=== PATIENT | female | born 2000 | race Caucasian/White ===

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

== ENCOUNTER → 2020-09-26 | Outpatient (CLI) | payer BC ==
[2020-09-26 23:14] LABS: HCT 44.7 % (37.2-46.3); HGB 14.4 g/dL (12.0-15.0); MCH 28.4 pg (27.0-32.0); MCHC 32.2 g/dL (32.0-37.0); MCV 88.2 fL (80.0-97.0); Mean Platelet Volume 10.2 fL (9.5-12.2); Platelet Count 320 X 10*3/uL (140-440); RBC 5.07 X 10*6/uL (4.10-5.20); RDW 12.7 % (11.5-14.5); WBC 8.73 X 10*3/uL (4.50-10.00)
[2020-09-27 00:44] LABS: Estradiol 27.9 pg/mL; Luteinizing Hormone 6.7 mIU/mL
[2020-09-27 00:46] LABS: Follicle Stimulating Hormone 6.1 mIU/mL
[2020-09-27 01:19] LABS: C Reactive Protein, High Sens 0.41 mg/L (0.000-3.000)
[2020-09-27 01:58] LABS: Thyroid Peroxidase Antibodies 34.8 U/mL (0.0-60.0)
[2020-09-27 02:03] LABS: Insulin Level 15.8 mIU/mL (3.0-25.0)
[2020-09-27 02:14] LABS: Progesterone 0.7 ng/mL
[2020-09-27 13:44] LABS: African American GFR (CKD) 123.9 (60.0-200.0); Albumin 5.4 g/dL (3.80-4.90); Albumin/Globulin Ratio 2.7 (1.60-3.17); Anion Gap 21.3 mmol/L (4.00-12.00); BUN/Creat Ratio 21.25 Ratio (12.00-20.00); Calcium 10.5 mg/dL (8.7-10.3); Carbon Dioxide 15.7 mmol/L (21.6-31.8); Non-African American GFR(CKD) 106.9 (60.0-200.0); Potassium 4.5 mmol/L (3.5-5.5); Total Bilirubin 0.5 mg/dL (0.2-1.2); Total Protein 7.4 g/dL (6.2-8.2)
[2020-09-27 13:45] LABS: % Iron Saturation 37.27 (12.00-45.00); Magnesium 2.1 mg/dL (1.5-2.4)
[2020-09-27 13:51] LABS: T4, Free (Free Thyroxine) 1.3 ng/dL (0.83-1.43)
[2020-09-27 13:54] LABS: Folate, Serum 4.9 ng/mL
[2020-09-28 18:34] LABS: Insulin-like GF3 Bind Prot 7.5 mg/L (2.9-7.3)
== END | disposition home or self-care (01) ==
LOC: LABWHC1 13:20
PROVIDERS: ATTEND Legal Medicine
DX: E06.3 Autoimmune thyroiditis (principal); E11.69 Type 2 diabetes mellitus with other specified complication; E23.7 Disorder of pituitary gland, unspecified; E27.8 Other specified disorders of adrenal gland; E28.39 Other primary ovarian failure; E64.9 Sequelae of unspecified nutritional deficiency
CPT/HCPCS: 36415; 80053; 82306; 82397; 82525; 82533; 82607; 82626; 82652; 82670; 82672; 82728; 82746; 82977; 83001; 83002; 83036; 83090; 83525; 83540; 83550; 83735; 84140; 84144; 84305; 84403; 84439; 84443; 84481; 84482; 84630; 85027; 86141; 86376; 86800

== ENCOUNTER 2020-11-12 03:42 | Emergency (ER) | payer BC ==
[2020-11-12 03:48] VITALS: BP 142/85; PULSE 122; RESP 22; TEMP 99
--- NOTE | 2020-11-12 03:49 | ED ---
SOB HPI - General Chief Complaint: Shortness of Breath Stated Complaint: SOB Time Seen by Provider: 11/12/20 03:44 Source: patient, RN notes reviewed, old records reviewed Mode of arrival: ambulatory Limitations: no limitations - History of Present Illness Initial Comments: This is a 20-year-old female DF for evaluation patient Dese for evaluation regar ds to sore throat cough congestion, pain chest pain fevers dizziness and also other complaints. Denies chance of . No recent travel history no sick contacts. Patient has to further elaborate on symptoms and states she just is here for coronavirus test MD Complaint: shortness of breath, cough -: hour(s), days(s) Severity: moderate Severity scale (1-10): 2 Quality: aching Consistency: constant Improves With: nothing Worsens With: nothing Known History Of: asthma Context: recent illness Associated Symptoms: chest pain, cough, sputum production, nausea/vomiting Treatments Prior to Arrival: none - Related Data Home Medications Medication Instructions Recorded Confirmed Levonorgestrel-Ethin Estradiol 1 tab PO HS 06/18/16 06/18/16 [Setlakin 0.15 mg-0.03 mg Tab] Previous Rx's Medication Instructions Recorded Naproxen 500 mg PO Q12H PRN #20 tab 07/04/15 Allergies Allergy/AdvReac Type Severity Reaction Status Date / Time No Known Allergies Allergy Verified 11/12/20 03:47 Review of Systems ROS Statement: Those systems with pertinent positive or pertinent negative responses have been documented in the HPI. ROS Other: All systems not noted in ROS Statement are negative. Past Medical History Past Medical History: No Reported History Additional Past Medical History / Comment(s): hemorrhagic ovarian cysts History of Any Multi-Drug Resistant Organisms: None Reported Past Surgical History: Adenoidectomy, Tonsillectomy Past Psychological History: Anxiety, Depression, Panic Disorder Smoking Status: Vaper Past Alcohol Use History: None Reported Past Drug Use History: None Reported General Exam Limitations: no limitations General appearance: alert, in no apparent distress, anxious Head exam: Present: atraumatic, normocephalic, normal inspection Eye exam: Present: normal appearance, PERRL, EOMI. Absent: scleral icterus, conjunctival injection, periorbital swelling ENT exam: Present: normal exam, mucous membranes moist Neck exam: Present: normal inspection. Absent: tenderness, meningismus, lymphadenopathy Respiratory exam: Present: normal lung sounds bilaterally. Absent: respiratory distress, wheezes, rales, rhonchi, stridor Cardiovascular Exam: Present: normal rhythm, tachycardia, normal heart sounds. Absent: systolic murmur, diastolic murmur, rubs, gallop, clicks GI/Abdominal exam: Present: soft, normal bowel sounds. Absent: distended, tenderness, guarding, rebound, rigid Extremities exam: Present: normal inspection, full ROM, normal capillary refill. Absent: tenderness, pedal edema, joint swelling, calf tenderness Back exam: Present: normal inspection Neurological exam: Present: alert, oriented X3, CN II-XII intact Psychiatric exam: Present: normal affect, normal mood Skin exam: Present: warm, dry, intact, normal color. Absent: rash Course Vital Signs 11/12/20 03:43 Temperature 99 F Pulse Rate 122 H Respiratory 22 Rate Blood Pressure 142/85 O2 Sat by Pulse 97 Oximetry - Reevaluation(s) Reevaluation #1: Medical record is reviewed Patient symptoms are significantly improved, care is significantly improved Patient informed results and questions answered Medical Decision Making - Medical Decision Making 20-year-old female DEL with multiple nonspecific symptoms. Patient requestioning does admit that she wants coronavirus test, coronavirus test is negative and she can be discharged - Lab Data Lab Results 11/12/20 Range/Units 04:16 Coronavirus (PCR) Not Detected (Not Detectd) Disposition Clinical Impression: Dyspnea, GI bleed, Sore throat Disposition: HOME SELF-CARE Condition: Good Instructions (If sedation given, give patient instructions): Gastrointestinal Bleeding (ED), Bronchospasm (ED), Sore Throat in Children (ED) Is patient prescribed a controlled substance at d/c from ED?: No Referrals: Erika Rosas MD [Primary Care Provider] - 1-2 days
[2020-11-12] MEDS: LORazepam 1 MG TAB PO STA ×2 (04:05→04:32)
[2020-11-12] MEDS ORDERED: ACETAMINOPHEN TAB 500 MG TAB PO STA (04:11)
[2020-11-12] MEDS ORDERED: IBUPROFEN 800 MG TAB PO STA (04:11)
--- NOTE | 2020-11-12 04:37 | XR ---
EXAM: XR Chest, 2 Views CLINICAL HISTORY: ITS.REASON XR Reason: sob TECHNIQUE: Frontal and lateral views of the chest. COMPARISON: None available FINDINGS: Lungs: Unremarkable. No consolidation. Pleural space: Unremarkable. No pneumothorax. Heart: Unremarkable. No cardiomegaly. Mediastinum: Unremarkable. Bones/joints: Unremarkable. IMPRESSION: No acute pulmonary process.
== END 2020-11-12 05:45 | disposition home or self-care (01) ==
LOC: EC 03:42
DX: J02.9 Acute pharyngitis, unspecified (principal); K92.2 Gastrointestinal hemorrhage, unspecified; R06.02 Shortness of breath; F17.290 Nicotine dependence, other tobacco product, uncomplicated; F32.9 Major depressive disorder, single episode, unspecified; F41.9 Anxiety disorder, unspecified; Z20.822 Contact with and (suspected) exposure to COVID-19
CPT/HCPCS: 71046; 87635; 99285

== ENCOUNTER 2020-12-15 | Emergency (ER) | payer BC | END 2020-12-15 04:50 | disposition home or self-care (01) ==

== ENCOUNTER 2020-12-27 08:44 | Day surgery (SDC) | payer BC ==
[2020-12-25 16:28] VITALS: BMI 26.1
[~2020-12-27 08:44] MED LIST: LACTATED RINGERS 1,000 ML IV SCH
[2020-12-27 09:07] VITALS: RESP 16; TEMP 98.1
[2020-12-27] MEDS ORDERED: fentaNYL (PF) 50 MCG/ML 2 ML AMP ONE (09:39)
[2020-12-27] MEDS ORDERED: PROPOFOL 10 MG/ML 20 ML VIAL IV ONE (09:39)
[2020-12-27] MEDS ORDERED: MIDAZOLAM 2 MG/2 ML VIAL ONE (09:39)
--- NOTE | 2020-12-27 09:55 | P.PCN ---
Date of Procedure: 12/27/20 Procedure(s) Performed: Brief history: Patient is a pleasant 20-year-old white female scheduled for an elective upper endoscopy as well as colonoscopy as a part of evaluation of epigastric pain, intermittent nausea, altered bowel movements and rectal bleeding for the last several months duration Procedure performed: Esophagogastroduodenoscopy with biopsy Colonoscopy Preoperative diagnosis: Epigastric pain/nausea Altered bowel movements and intermittent rectal bleeding [place] [facility] [place]: After informed consent was obtained from the patient was brought into the endoscopy unit and IV sedation was administered by anesthesia under continuous monitoring. Initially upper endoscopy was done. The Olympus GF 160 video endoscope was inserted inserted into the mouth and esophagus intubated without any difficulty and was gradually advanced into the stomach and duodenum and carefully examined. The bulb and second part of the duodenum appeared normal. The scope was then withdrawn into the stomach adequately insufflated with air and upon careful examination the antrum had mild gastritis and biopsies were done from this area. The body, cardia and fundus appeared normal. The scope was then withdrawn into the esophagus. The GE junction was located at 40 cm to the incisors. It appeared regular with no erythema erosions or ulcerations. Rest of the esophagus appeared normal. Patient tolerated the procedure well. At this time the patient continued to remain sedation. Initial digital rectal examination was normal. Olympus CF 160 video colonoscope was then inserted into the rectum and gradually advanced to the cecum without any difficulty. Careful examination was performed as the scope was gradually being withdrawn. The prep was excellent. The cecum, ascending colon, transverse colon, descending colon, sigmoid colon and rectum appeared normal. Retroflexion was performed in the rectum and no lesions were noted. Patient tolerated the procedure well. Impression: 1. Upper endoscopy revealed minimal antral gastritis 2. Colonoscopy was within normal limits with no evidence of colitis or colorectal neoplasia Recommendations: Findings of this examination were discussed with the patient as well as her family. She was advised to follow with the biopsy results. She will continue with a high-fiber diet and take fiber supplements a regular basis. We'll be seen in office in one to 2 weeks
[2020-12-27 10:19] VITALS: BP 109/81; PULSE 80
== END 2020-12-27 10:50 | disposition home or self-care (01) ==
LOC: ORWHC2ENDO 08:44
PROVIDERS: ATTEND Internal Medicine Gastroenterology
DX: R10.13 Epigastric pain (principal); K62.5 Hemorrhage of anus and rectum; K29.50 Unspecified chronic gastritis without bleeding; F32.9 Major depressive disorder, single episode, unspecified; Z79.899 Other long term (current) drug therapy
CPT/HCPCS: 81025; 88305; 45380; 43239; J2250; J3010; J2704; 45378